=== PATIENT | female | born 1960 | race Caucasian/White ===

== ENCOUNTER → 2016-09-09 | Outpatient (CLI) | payer OTHER ==
[~2016-09-09] MED LIST: ALPR-411 PO; CHOL2000 PO; CYCL5TAB PO; DEXL60CA4 PO; HYDR-4330 PO; LANS15TA2 PO; LEVO75TA36 PO; LEVO75TA5 PO; MELO7.5T5 PO; MTRG45 TD; OPTIRAY 320 IV PRN; TRAM-10 PO; VNTHFA/IN INH; ZOLP5TAB PO; ZOLP5TAB6 PO
--- NOTE | 2016-09-09 13:21 | DIAGNOSTIC IMAGING REPORT ---
CT SOFT TISSUE NECK WITH CT DOSE: 269.39 mGy.cm CLINICAL HISTORY: Right neck pain and mass. Right ear pain. TECHNIQUE: Helical images were acquired during intravenous administration of 93 cc of Optiray 320. COMPARISON STUDY: Neck ultrasonography dated 08/10/2016 FINDINGS: There is mild apical emphysema. There are postsurgical changes of a right lobe thyroidectomy. There is a 7 mm left lobe thyroid nodule. There is a 60% stenosis involving the proximal left subclavian artery. No salivary gland masses are visualized. There are no pathologically enlarged cervical lymph nodes. No necrotic nodes are evident. There are no fluid collections suspicious for abscess. There is no evidence of airway compromise. No mucosal space masses are visualized. There is a radiopaque marker at the level of the right parotid gland. No pathologic masses in this area are visualized on CT scanning. IMPRESSION: 1. Surgically absent right lobe of the thyroid. 7 mm left lobe thyroid nodule 2. 60% stenosis involving the proximal left subclavian artery 3. No evidence of pathologic adenopathy 4. No pathologic masses are visualized in the area of reported palpable abnormality . Clinical follow-up is recommended Electronically signed by: Balta Montoya M.D. 09/09/2016 1:19 PM Dictated Date/Time: 09/09/2016 1:09 PM
== END | disposition home or self-care (01) ==
LOC: C.CTS 12:24
PROVIDERS: ATTEND Internal Medicine
DX: D47.3 Essential (hemorrhagic) thrombocythemia (principal); H92.01 Otalgia, right ear; M54.2 Cervicalgia; R22.1 Localized swelling, mass and lump, neck; R13.10 Dysphagia, unspecified; E04.1 Nontoxic single thyroid nodule; I70.8 Atherosclerosis of other arteries

== ENCOUNTER → 2016-09-28 | Outpatient (CLI) | payer OTHER ==
[~2016-09-28] MED LIST changes: -OPTIRAY 320 IV PRN
--- NOTE | 2016-09-28 12:23 | DIAGNOSTIC IMAGING REPORT ---
ULTRASOUND OF THE CAROTID ARTERIES CLINICAL HISTORY: Subclavian artery stenosis. COMPARISON STUDY: CT scan of the neck dated 09/09/2016. TECHNIQUE: Real-time, grayscale, and color Doppler sonography of the carotid arteries is performed. Images are reviewed in the transverse and longitudinal planes. FINDINGS: Blood pressure in the right arm measures 120/66 and blood pressure in the left arm measures 122/70. The carotid arteries are patent bilaterally and demonstrate antegrade flow. There is no significant atherosclerotic plaque identified. Normal doppler arterial waveforms are seen throughout. Velocity measurements are listed below. Common carotid peak systolic velocity (cm/sec): RIGHT: 71 LEFT: 92 ICA proximal peak systolic velocity (cm/sec): RIGHT: 66 LEFT: 28 ICA mid peak systolic velocity (cm/sec): RIGHT: 63 LEFT: 46 ICA distal peak systolic velocity (cm/sec): RIGHT: 84 LEFT: 67 ICA/CC peak systolic ratio: RIGHT: 1.2 LEFT: 0.7 Antegrade flow was shown in the vertebral arteries. The external carotid arteries are patent. A 1.0 cm nodule is noted in the left lobe of the thyroid gland. IMPRESSION: 1. There is no sonographic evidence of hemodynamically significant stenosis in the right or left carotid arterial system. 2. Antegrade flow is shown in the vertebral arteries. Electronically signed by: Phil Santana M.D. 09/28/2016 12:22 PM Dictated Date/Time: 09/28/2016 12:20 PM
--- NOTE | 2016-09-28 13:18 | DIAGNOSTIC IMAGING REPORT ---
BILATERAL UPPER EXTREMITY ARTERIAL DOPPLER STUDY CLINICAL HISTORY: SUBCLAVIAN ARTERY Stenosis, b/l ARMS COMPARISON STUDY: CT neck 09/09/2016. FINDINGS: Slightly elevated peak systolic velocity within the proximal left subclavian artery of 150 cm/s. This is consistent with an area of approximately 50-60% stenosis as seen on the recent CT neck. The left subclavian artery demonstrates biphasic waveforms. Otherwise, the remaining bilateral upper extremity arterial systems demonstrate normal velocities and triphasic waveforms. No evidence for arterial occlusion. IMPRESSION: Redemonstration of the approximately 50-60% focal stenosis at the proximal left subclavian artery. Otherwise, no hemodynamically significant stenosis seen within the remaining bilateral upper extremity arterial systems. Electronically signed by: Padilla Chan M.D. 09/28/2016 1:17 PM Dictated Date/Time: 09/28/2016 1:11 PM
== END | disposition home or self-care (01) ==
LOC: C.ULTR 10:55
PROVIDERS: ATTEND Surgery Vascular Surgery
DX: I70.8 Atherosclerosis of other arteries (principal)

== ENCOUNTER → 2016-10-20 | Outpatient (CLI) | payer OTHER | END | disposition home or self-care (01) | LOC: C.MAMM 09:21 | PROVIDERS: ATTEND Internal Medicine | DX: M81.0 Age-related osteoporosis without current pathological fracture (principal); M85.88 Other specified disorders of bone density and structure, other site ==

== ENCOUNTER → 2016-10-24 | Outpatient (CLI) | payer OTHER ==
--- NOTE | 2016-10-24 13:21 | DIAGNOSTIC IMAGING REPORT ---
LUMBAR SPINE MRI HISTORY: Pain. Neuropathy. LUMBAR RADICULOPATHY TECHNIQUE: Multiplanar multisequence MRI of the lumbar spine was performed without the use of contrast. COMPARISON: None. FINDINGS: For the purpose of the report the L5-S1 disc space will be located on axial image 27 of 30. Normal signal characteristics the vertebral bodies as well as intervertebral disc. L1-L2: No significant central canal or neural foraminal narrowing. L2-L3: No significant central canal or neural foraminal narrowing. L3-L4: No significant central canal or neural foraminal narrowing. L4-L5: No significant central canal or neural foraminal narrowing. L5-S1: No significant central canal or neural foraminal narrowing. IMPRESSION: Negative study Electronically signed by: Jose Miguel Doss M.D. 10/24/2016 1:19 PM Dictated Date/Time: 10/24/2016 1:17 PM
== END | disposition home or self-care (01) ==
LOC: C.MRIBC 12:27
PROVIDERS: ATTEND Orthopaedic Surgery Orthopaedic Surgery of the Spine
DX: M54.16 Radiculopathy, lumbar region (principal)

== ENCOUNTER → 2016-11-02 | Outpatient (CLI) | payer OTHER ==
[2016-11-02 10:50] LABS: BASO % 0.5 %; BASO ABS # 0.04 K/uL (0-0.2); COMPLETE YES; EOS % 0.6 %; HEMATOCRIT 41.6 % (37-47); IG% 0.2 %; LYMPH % 34.4 %; LYMPH ABS # 2.98 K/uL (1.2-3.4); MEAN CELL VOLUME 87.8 fL (80-100); MEAN CORPUSCULAR HEMOGLOBIN 29.7 pg (25-34); MEAN CORPUSCULAR HGB CONC 33.9 g/dl (32-36); MEAN PLATELET VOLUME 10.2 fL (7.4-10.4); MONO % 6.9 %; NEUT % 57.4 %; PLATELET COUNT 558 K/uL (130-400); RED BLOOD COUNT 4.74 M/uL (4.2-5.4); WHITE BLOOD COUNT 8.66 K/uL (4.8-10.8)
[2016-11-02 11:24] LABS: ALT/SGPT 27 U/L (12-78); AST/SGOT 23 U/L (15-37); BLOOD UREA NITROGEN 10 mg/dl (7-18); BUN/CREATININE RATIO 18.1 (10-20); CALCIUM 8.9 mg/dl (8.5-10.1); CARBON DIOXIDE 28 mmol/L (21-32); CHLORIDE 107 mmol/L (98-107); CHOLESTEROL 213 mg/dl (0-200); CREATININE 0.57 mg/dl (0.60-1.20); GLUCOSE 77 mg/dl (70-99); MAGNESIUM 2.1 mg/dl (1.8-2.4); POTASSIUM 4.1 mmol/L (3.5-5.1); SODIUM 143 mmol/L (136-145); TRIGLYCERIDES 97 mg/dl (0-150); VERY LOW DENSITY LIPOPROT CALC 19 mg/dl
[2016-11-02 11:32] LABS: ALKALINE PHOSPHATASE 64 U/L (45-117); CHOLESTEROL/HDL RATIO 2.4; HDL CHOLESTEROL 89 mg/dl; LDL CHOLESTEROL CALCULATED 105 mg/dl
== END | disposition home or self-care (01) ==
LOC: C.LAB1850 09:50
PROVIDERS: ATTEND Internal Medicine
DX: E03.9 Hypothyroidism, unspecified (principal); E55.9 Vitamin D deficiency, unspecified; D47.3 Essential (hemorrhagic) thrombocythemia; R00.2 Palpitations

== ENCOUNTER 2016-12-22 07:22 | Emergency (ER) | payer OTHER ==
[~2016-12-22] VITALS: Ht 160 cm; Wt 59.6 kg
[~2016-12-22 07:22] MED LIST changes: -ALPR-411 PO; -CHOL2000 PO; -CYCL5TAB PO; -DEXL60CA4 PO; -HYDR-4330 PO; -LEVO75TA5 PO; -MELO7.5T5 PO; -MTRG45 TD; -TRAM-10 PO; -VNTHFA/IN INH; -ZOLP5TAB PO
[2016-12-22 07:25] VITALS: TEMP 36.8; Ht 160 cm; Wt 59.6 kg
[2016-12-22] MEDS ORDERED: HYDROCODONE/ACETAMOPHEN 5/325MG TAB PO STA (07:52)
[2016-12-22] MEDS ORDERED: CYCLOBENZAPRINE HCL 5 MG TAB PO STA (07:52)
[2016-12-22] MEDS ORDERED: CYCLOBENZAPRINE HCL 10 MG TAB ONE (08:03)
[2016-12-22] MEDS ORDERED: CYCL5TAB PO (08:06)
[2016-12-22] MEDS ORDERED: TRAM-10 PO (08:06)
[2016-12-22] MEDS ORDERED: MTRG45 TD (08:12)
[2016-12-22] MEDS ORDERED: DEXL60CA4 PO (08:12)
[2016-12-22] MEDS ORDERED: MELO7.5T5 PO (08:12)
[2016-12-22] MEDS ORDERED: ALPR-411 PO (08:12)
[2016-12-22] MEDS ORDERED: VNTHFA/IN INH (08:12)
[2016-12-22] MEDS ORDERED: ZOLP5TAB PO (08:12)
[2016-12-22] MEDS ORDERED: CHOL2000 PO (08:12)
[2016-12-22] MEDS ORDERED: LEVO75TA5 PO (08:12)
[2016-12-22] MEDS ORDERED: HYDR-4330 PO (08:13)
[2016-12-22 08:25] VITALS: BP 137/87; PULSE 81; O2SAT 99
--- NOTE | 2016-12-22 08:27 | EMERGENCY ROOM VISIT NOTE ---
History Report prepared by Jennifer: Abigail Perez Under the Supervision of: Dr. Sharon Chandra M.D. First contact with patient: 07:31 Chief Complaint: BACK PAIN Stated Complaint: BACK PAIN History of Present Illness The patient is a 56 year old female who presents to the Emergency Room with complaints of worsening back pain starting 3 days ago. She fell down 8 months ago and has been going to physical therapy and chiropractor for back pain since. Three days ago, she had an FCE test which involved lifting, pushing, and pulling activities for 3.5 hours. She has had increased pain starting the next day. She also reports right knee pain, left ankle pain, neck pain, and right arm pain. She has pain in her back with deep breathing. She denies any incontinence or trouble urinating. She has been taking up to 3 tramadol at a time for her pain. MRI from September 2016 was reviewed in which no abnormalities were visualized. Source of History: patient Onset: 3 days ago Position: back Quality: other (pain) Timing: worsening Modifying Factors (Worsening): breathing (deeply) Associated Symptoms: + neck pain, No urinary symptoms Note: Pt reports right knee pain, left ankle pain, right arm pain. Pt denies incontinence, trouble urinating. Review of Systems See HPI for pertinent positives & negatives. A total of 10 systems reviewed and were otherwise negative. Past Medical & Surgical Medical Problems: (1) Depression (2) GERD (gastroesophageal reflux disease) (3) Hyperlipidemia Nec/Nos (4) Hypotension (5) Hypothyroidism Nos Surgical Problems: (1) History of thyroid surgery Family History Diabetes mellitus Social History Smoking Status: Never Smoker Alcohol Use: none Marital Status: Housing Status: lives with family Occupation Status: employed Current/Historical Medications Scheduled Cholecalciferol (Vitamin D3), 2,000 UNITS PO DAILY Dexlansoprazole (Dexilant), 60 MG PO DAILY Levothyroxine Sodium (Levothyroxine Sodium), 75 MCG PO DAILY Meloxicam (Mobic), 7.5 MG PO DAILY Metronidazole HCl (Metronidazole), 1 APPLN TD BID Scheduled PRN Albuterol Hfa (Ventolin Hfa), 1-2 PUFFS INH Q4H PRN for SOB/Wheezing Alprazolam (Xanax), 0.25-0.5 MG PO BID PRN for Anxiety Cyclobenzaprine Hcl (Flexeril), 5 MG PO TID PRN for Muscle Spasms Hydrocodone-Acetaminophen (Lortab 5-325 mg), 1 TAB PO Q4 PRN for Pain Tramadol (Ultram), 1 TABS PO Q6 PRN for Pain Zolpidem Tartrate (Ambien), 5 MG PO HS PRN for Insomnia Allergies Coded Allergies: No Known Allergies (Unverified , 12/22/16) Physical Exam Vital Signs Date Time Temp Pulse Resp B/P Pulse Ox O2 Delivery O2 Flow Rate FiO2 12/22/16 08:25 81 18 137/87 99 12/22/16 07:25 36.8 85 17 131/92 98 Room Air Physical Exam Vital signs reviewed. General: Appears to be anxious and fidgety, in no significant distress. HEENT: No scleral icterus, PERRLA, neck supple. Atraumatic. Cardiovascular: Regular rate and rhythm, no extra sounds. Pulmonary: Clear to auscultation bilaterally, normal work of breathing. Abdomen: Soft, nontender, nondistended, positive bowel sounds. Musculoskeletal: Atraumatic, no peripheral edema. Tenderness to palpation over trapezius muscle bilaterally, paraspinous muscle of lumbar spine. Full strength in bilateral lower extremities. Ambulates. Neurologic: Patient awake alert and oriented x 3, full strength in all 4 extremities. Cranial nerves 2 through 12 grossly intact. Skin: Warm, dry, no rash Medical Decision & Procedures Medications Administered Medications (Trade) Dose Ordered Sig/Cezar Route Start Time Stop Time Status Last Admin Dose Admin Acetaminophen/ Hydrocodone Bitart ([place] 5/325 Tab) 1 tab NOW STAT PO 12/22/16 07:52 12/22/16 07:58 DC 12/22/16 08:05 1 TAB Cyclobenzaprine HCl (Flexeril Tab) 10 mg STK-MED ONCE .ROUTE 12/22/16 08:03 12/22/16 08:04 DC 12/22/16 08:06 5 MG ED Course 0737: Past medical records reviewed. The patient was evaluated in room B3B. A complete history and physical examination was performed. 0752: Acetaminophen/Hydrocodone Bitart 1 tab PO, Flexeril Tab 5 mg PO. 0809: Upon reevaluation, the patient appeared to have improvement of her symptoms. I discussed findings with her. She verbalized agreement of the treatment plan. She was discharged home. Medical Decision Differential diagnosis: Etiologies such as musculoskeletal, disc herniation, fracture, aortic disease, metastatic disease, cord compression, discitis, infection, renal colic, gastrointestinal, acute exacerbation of chronic back pain, sciatica, cauda equina, as well as others were entertained. This patient was evaluated and appeared to be in no significant distress. Patient's physical examination reveals tenderness diffusely. She has multiple complaints of pain. She is ambulatory without difficulty and has denied loss of bowel or bladder function. The patient has run out of her pain medication, according to the PDMP the patient has not had any medications filled in at least 4 months. The patient was given a hydrocodone tablet with 5 mg of Flexeril. MRI results were reviewed from 2 months ago. The patient has no acute abnormality on MRI of the lumbar spine. Patient was given a one-week prescription for Ultram 50 mg every 6 hours as needed and Flexeril milligrams 3 times a day as needed. She'll follow-up with orthopedic spine this week and her primary care physician. She will return to the ER for worsening of symptoms or any medical concerns. [place] Drug Monitoring Program Search Results: patient reviewed within database, no issues identified Drug Monitoring Findings: Last prescription was tramadol in June 2016. Impression Primary Impression: Low back strain Additional Impression: Upper back strain Scribe Attestation The scribe's documentation has been prepared under my direction and personally reviewed by me in its entirety. I confirm that the note above accurately reflects all work, treatment, procedures, and medical decision making performed by me. Departure Information Dispostion Home / Self-Care Prescriptions Cyclobenzaprine Hcl (FLEXERIL) 5 Mg Tab 5 MG PO TID Y for Muscle Spasms, #21 TAB Prov: Sharon Chandra M.D. 12/22/16 Tramadol (Ultram) 50 Mg Tab 1 TABS PO Q6 Y for Pain, #21 TAB Prov: Sharon Chandra M.D. 12/22/16 Referrals RV. Can MD (PCP) Forms HOME CARE DOCUMENTATION FORM, IMPORTANT VISIT INFORMATION Patient Instructions My [facility] Additional Instructions Diagnosis: Upper and lower back strain Tramadol 50 mg every 6 hours as needed for pain. Ibuprofen 600 mg every 6 hours as needed for pain with food. Flexeril 5 mg 3 times daily as needed for muscular spasm. Follow-up with your physician and orthopedic spine, Dr. Granados. Please call their office today to arrange an appointment within the next 1-2 weeks. Return to the emergency department for worsening of symptoms or any medical concerns. Problem Qualifiers
== END 2016-12-22 08:26 | disposition home or self-care (01) ==
LOC: C.EDB 07:23
DX: S39.012A Strain of muscle, fascia and tendon of lower back, initial encounter (principal); W19.XXXA Unspecified fall, initial encounter; F32.9 Major depressive disorder, single episode, unspecified; K21.9 Gastro-esophageal reflux disease without esophagitis; E78.5 Hyperlipidemia, unspecified; I95.9 Hypotension, unspecified; E03.9 Hypothyroidism, unspecified; Z83.3 Family history of diabetes mellitus; Z79.899 Other long term (current) drug therapy

== ENCOUNTER → 2016-12-27 | Outpatient (CLI) | payer OTHER ==
[~2016-12-27] MED LIST changes: +ALPR-411 PO; +CHOL2000 PO; +CYCL5TAB PO; +DEXL60CA4 PO; +HYDR-4330 PO; -LANS15TA2 PO; -LEVO75TA36 PO; +LEVO75TA5 PO; +MELO7.5T5 PO; +MTRG45 TD; +TRAM-10 PO; +VNTHFA/IN INH; +ZOLP5TAB PO; -ZOLP5TAB6 PO
[2016-12-27 18:58] LABS: C-REACTIVE PROTEIN < 0.29 mg/dl (0-0.29); RHEUMATOID FACTOR 15.9 U/mL (0-15)
[2017-01-02 13:10] LABS: ANTI-CENTROMERE AB <1.0 NEG AI (<1.0 NEG); ANTI-SS-A <1.0 NEG AI (<1.0 NEG); ANTI-SS-B <1.0 NEG AI (<1.0 NEG); DNA ds CRITHIDIA NEGATIVE (NEGATIVE); HLA-B27** TC 528X NEGATIVE (NEGATIVE); MICROSOMAL AB <1 IU/ML (<9); Sm Antibody <1.0 NEG AI (<1.0 NEG)
== END | disposition home or self-care (01) ==
LOC: C.LAB 17:42
PROVIDERS: ATTEND Internal Medicine
DX: M54.5 Low back pain (principal)

== ENCOUNTER → 2017-01-30 | Outpatient (CLI) | payer OTHER ==
[~2017-01-30] MED LIST changes: -CYCL5TAB PO
[2017-01-30 17:11] LABS: TOTAL IRON BINDING CAPACITY 420 mcg/dl (250-450)
[2017-02-03 00:51] LABS: PARVOVIRUS IgG INDEX 2.7 (<0.9); PARVOVIRUS IgM INDEX 0.1 (<0.9)
== END | disposition home or self-care (01) ==
LOC: C.LAB1850 15:41
PROVIDERS: ATTEND Internal Medicine Rheumatology
DX: M06.4 Inflammatory polyarthropathy (principal)

== ENCOUNTER → 2017-01-30 | Outpatient (CLI) | payer OTHER ==
--- NOTE | 2017-01-30 15:46 | DIAGNOSTIC IMAGING REPORT ---
RIGHT KNEE 3 VIEWS CLINICAL HISTORY: Right knee pain. COMPARISON: None. DISCUSSION: No acute fractures are visualized. There are no erosive or destructive changes. There is minimal medial joint compartment narrowing. IMPRESSION: Minimal medial joint compartment narrowing. No evidence of fracture. No erosive or destructive changes. Electronically signed by: Balta Montoya M.D. 01/30/2017 3:45 PM Dictated Date/Time: 01/30/2017 3:44 PM
--- NOTE | 2017-01-30 15:47 | DIAGNOSTIC IMAGING REPORT ---
LEFT ANKLE MIN 3 VIEWS ROUTINE CLINICAL HISTORY: POLYARTHRITIS COMPARISON: None FINDINGS: Alignment of left ankle is anatomic. No fracture or suspicious lesion is present. Talar dome is intact. Joint spaces are preserved. No erosions are identified. There are no soft tissue calcifications. IMPRESSION: Unremarkable left ankle radiographs. Electronically signed by: Cam Newman M.D. 01/30/2017 3:45 PM Dictated Date/Time: 01/30/2017 3:45 PM
--- NOTE | 2017-01-30 15:48 | DIAGNOSTIC IMAGING REPORT ---
LEFT HAND MIN 3 VIEWS ROUTINE CLINICAL HISTORY: POLYARTHRITIS LEFT HAND PAIN COMPARISON: None. DISCUSSION: There is mild particular osteopenia. No acute fractures are visualized. There are small periarticular calcifications at the level of the second and third, and fifth interphalangeal joints. There are no bony erosions. There is no significant joint space narrowing. IMPRESSION: 1. No acute fractures 2. Nonspecific periarticular calcifications 3. No evidence of bony erosive disease 4. No evidence of significant joint space narrowing 5. Periarticular osteopenia Electronically signed by: Balta Montoya M.D. 01/30/2017 3:47 PM Dictated Date/Time: 01/30/2017 3:45 PM
--- NOTE | 2017-01-30 15:48 | DIAGNOSTIC IMAGING REPORT ---
RIGHT HAND MIN 3 VIEWS ROUTINE CLINICAL HISTORY: POLYARTHRITIS. COMPARISON: None FINDINGS: Alignment of the right hand is anatomic. There is no fracture or suspicious lesion. There is mild narrowing of the radiocarpal joint space. There is mild osteophytosis of several articulations within the right hand. No erosions are identified. IMPRESSION: 1. Minimal osteoporosis within several articulations of the right hand and wrist. 2. No radiographic evidence of an erosive/inflammatory arthropathy. Electronically signed by: Cam Newamn M.D. 01/30/2017 3:47 PM Dictated Date/Time: 01/30/2017 3:46 PM
== END | disposition home or self-care (01) ==
LOC: C.RAD1850 15:14
PROVIDERS: ATTEND Internal Medicine Rheumatology
DX: M06.4 Inflammatory polyarthropathy (principal)

== ENCOUNTER → 2017-04-06 | Outpatient (CLI) | payer OTHER ==
[2017-04-06 13:37] LABS: BASO % 0.3 %; BASO ABS # 0.03 K/uL (0-0.2); COMPLETE YES; EOS % 1.1 %; HEMATOCRIT 40.2 % (37-47); IG% 0.3 %; LYMPH % 32.1 %; LYMPH ABS # 2.84 K/uL (1.2-3.4); MEAN CELL VOLUME 85.9 fL (80-100); MEAN CORPUSCULAR HEMOGLOBIN 28.2 pg (25-34); MEAN CORPUSCULAR HGB CONC 32.8 g/dl (32-36); MEAN PLATELET VOLUME 10.4 fL (7.4-10.4); MONO % 6.6 %; NEUT % 59.6 %; PLATELET COUNT 509 K/uL (130-400); RED BLOOD COUNT 4.68 M/uL (4.2-5.4); WHITE BLOOD COUNT 8.85 K/uL (4.8-10.8)
[2017-04-06 13:46] LABS: CREATININE 0.57 mg/dl (0.60-1.20)
[2017-04-06 13:52] LABS: ALKALINE PHOSPHATASE 69 U/L (45-117); ALT/SGPT 26 U/L (12-78); AST/SGOT 14 U/L (15-37)
== END | disposition home or self-care (01) ==
LOC: C.LAB1850 11:48
PROVIDERS: ATTEND Internal Medicine Rheumatology
DX: M06.4 Inflammatory polyarthropathy (principal); Z79.1 Long term (current) use of non-steroidal anti-inflammatories (NSAID); Z79.899 Other long term (current) drug therapy

== ENCOUNTER → 2017-09-11 | Outpatient (CLI) | payer OTHER ==
[~2017-09-11] MED LIST changes: -TRAM-10 PO
[2017-09-11 17:36] LABS: BASO % 0.4 %; BASO ABS # 0.04 K/uL (0-0.2); EOS % 1.4 %; EOS ABS # 0.15 K/uL (0-0.5); HEMATOCRIT 39.6 % (37-47); IG# 0.03 K/uL (0.00-0.02); LYMPH % 38.6 %; LYMPH ABS # 4.09 K/uL (1.2-3.4); MEAN CELL VOLUME 85.3 fL (80-100); MEAN CORPUSCULAR HGB CONC 32.8 g/dl (32-36); MEAN PLATELET VOLUME 10.5 fL (7.4-10.4); MONO % 6.4 %; MONO ABS # 0.68 K/uL (0.11-0.59); NEUT % 52.9 %; NEUT ABS # 5.61 K/uL (1.4-6.5); PLATELET COUNT 603 K/uL (130-400); RED CELL DISTRIBUTION WIDTH CV 14.6 % (11.5-14.5); RED CELL DISTRIBUTION WIDTH SD 45.6 fL (36.4-46.3)
[2017-09-11 18:09] LABS: ALBUMIN 3.8 gm/dl (3.4-5.0); ALT/SGPT 26 U/L (12-78); AST/SGOT 18 U/L (15-37); BLOOD UREA NITROGEN 9 mg/dl (7-18); CALCIUM 8.6 mg/dl (8.5-10.1); CARBON DIOXIDE 27 mmol/L (21-32); CREATININE 0.53 mg/dl (0.60-1.20); GLUCOSE 79 mg/dl (70-99); POTASSIUM 3.6 mmol/L (3.5-5.1); SODIUM 139 mmol/L (136-145)
[2017-09-11 18:20] LABS: ALKALINE PHOSPHATASE 69 U/L (45-117); TOTAL PROTEIN 7.4 gm/dl (6.4-8.2)
== END | disposition home or self-care (01) ==
LOC: C.LAB1850 16:44
PROVIDERS: ATTEND Internal Medicine
DX: D47.3 Essential (hemorrhagic) thrombocythemia (principal); E55.9 Vitamin D deficiency, unspecified; E03.9 Hypothyroidism, unspecified; M25.561 Pain in right knee; M25.562 Pain in left knee

== ENCOUNTER → 2017-11-16 | Day surgery (SDC) | payer OTHER ==
[~2017-11-16] VITALS: Ht 160 cm; Wt 59.0 kg
[~2017-11-16] MED LIST changes: +IRON SUCROSE INJ 300 MG in SODIUM CHLORIDE 0.9% 250ML IV SCH; +SUCR1TAB29 PO
[2017-11-16 11:31] VITALS: BP 112/70; PULSE 85; TEMP 36.7; O2SAT 99; Ht 160 cm; Wt 59.0 kg
[2017-11-16 12:11] VITALS: BP 105/68; PULSE 85; TEMP 36.6; O2SAT 99
[2017-11-16 13:40] VITALS: BP 100/62; PULSE 72; TEMP 36.5
== END | disposition home or self-care (01) ==
LOC: C.MTU 11:11
PROVIDERS: ATTEND Internal Medicine
DX: D50.9 Iron deficiency anemia, unspecified (principal); D47.3 Essential (hemorrhagic) thrombocythemia

== ENCOUNTER → 2017-12-25 | Outpatient (CLI) | payer OTHER ==
[~2017-12-25] MED LIST changes: -HYDR-4330 PO; -IRON SUCROSE INJ 300 MG in SODIUM CHLORIDE 0.9% 250ML IV SCH
== END | disposition home or self-care (01) ==
LOC: C.LAB 18:40
PROVIDERS: ATTEND Physician Assistant
DX: R39.9 Unspecified symptoms and signs involving the genitourinary system (principal)

== ENCOUNTER → 2017-12-26 | Outpatient (CLI) | payer OTHER | END | disposition home or self-care (01) | LOC: C.LABSPEC 13:46 | PROVIDERS: ATTEND Physician Assistant | DX: R30.0 Dysuria (principal) ==

== ENCOUNTER 2025-08-18 11:54 | Observation (INO) ==
--- NOTE | 2025-08-18 12:23 | Emergency Department Note ---
Impression & Plan Acute back pain with sciatica ED Provider Note NAME: ALFONZO YOUNG AGE: 64 SEX: F : 1960 ARRIVES VIA: Walk-In INFORMANT: Patient, ED PROVIDER(S): Curly Underwood MD CHIEF COMPLAINT: Back and leg pain MEDICAL DECISION MAKING: Patient presents with above likely sciatica based on symptoms with radiation of pain down the right leg and associated numbness. IV was established and blood work was obtained. She was treated with medications. Lumbar x-rays performed. The patient's blood work shows a normal white count hemoglobin and platelet count kidney function is unremarkable. The patient's lumbar x-rays do not show any acute concerning findings. Patient does have improvement with regard to her back pain but was still having pain. The patient was ordered fentanyl 50 mcg methocarbamol 1500 as well as IV fluids. Patient did feel improved upon subsequent reassessment. The patient was attempted to go home was placed in a wheelchair but was noted will get up and ambulate very well. Patient does not have any exam consistent with cauda equina but this is likely radiculopathy. Given the patient's amatory function and persistent pain I did speak with the on-call medicine service Dr. De Leon and the patient was admitted. Patient on IV morphine 4 mg. Discussion w/ other healthcare providers: Dr. De Leon inpatient medicine service Prior /Outside records reviewed: None Differential diagnosis: Musculoskeletal, disc herniation, fracture, sprain, strain, cord compression, discitis, sciatica, cauda equina, infection, renal colic, as well as other pathologies were considered. Diagnostics, as interpreted by me: ECG: None Cardiac monitoring: An order was placed for continuous cardiac monitoring. The monitor shows a rate of 89 with sinus rhythm. Patient was placed on pulse oximetry Medical decision rules: None Imaging studies: I informally interpreted the patient's lumbar spine x-ray does not show evidence of obvious fracture with formal report to follow. HPI: Patient presents due to concerns for back pain and leg pain. The pain started about 2 Mondays ago. It has gotten progressively worse. The patient has been taking [id number] medications. Patient reports this morning she had worsening pain down the right leg and associated numbness. No bowel or bladder incontinence or retention. No falls or trauma. Patient denies any urinary symptoms. Reportedly as an outpatient did have a urine completed which was unremarkable. Patient denies any falls. PAST MEDICAL HISTORY: See Below PAST SURGICAL HISTORY: See Below SOCIAL HISTORY: See Below HOME MEDICATIONS: See Below ALLERGIES: See Below VITALS: See Below PHYSICAL EXAMINATION: GENERAL: NAD, non-toxic. EYE EXAM: Normal conjunctiva. PERRL, no anisocoria and EOM's grossly intact w/o pain. OROPHARYNX: Moist mucus membranes, grossly normal dentition. NECK: Trachea midline, no stridor. Supple, no nuchal rigidity, no adenopathy, non-tender. No signs of meningismus. FROM of the neck with good chin to chest and neck extension. LUNGS: Clear to auscultation. Normal chest wall mechanics. HEART: NSR, no MRG. ABDOMEN: Abdomen soft, non-tender, no masses, no rebound or guarding. BACK: No CVA TTP. SKIN: No rashes and no bruising. UPPER EXTREMITIES: Upper extremities are grossly normal. LOWER EXTREMITIES: Grossly normal, no edema. NEURO EXAM: Awake and alert, follows commands, no obvious facial asymmetry, normal speech, moves all 4 extremities. Past Med/Surg History Problem List GERD (gastroesophageal reflux disease) Thrombocytopenia Acute back pain with sciatica (Acute) Iron deficiency Multiple thyroid nodules Splenomegaly (Acute) Frequent UTI (Chronic) Cystocele with rectocele Right low back pain Ovarian cyst 2017, simple, left 2.1cm Prediabetes Difficulty swallowing Osteopenia GERD (gastroesophageal reflux disease) Generalized OA Smell, impaired Decreased sensation of smell since infection July 2019 Vitamin D deficiency disease (Acute) Decreased hearing of right ear (Acute) Abnormal EMG (Acute) Asthma Bronchiectasis Allergic rhinitis with postnasal drip COPD (chronic obstructive pulmonary disease) Low back pain Subclavian artery stenosis Rosacea Essential thrombocytopenia f/u Dr. Shant Hemphill @ [facility] Hypothyroidism (Acute) Medical History Neck tightness Depression Hyperlipidemia H/O thyroid nodule Blepharitis of upper eyelid Neck pain Acquired autoimmune hypothyroidism Abnormal thyroid ultrasound COVID-19 UTI (urinary tract infection) Asymptomatic postmenopausal state Intestinal metaplasia of gastric mucosa EGD- 2019- chronic gastritis only RUQ pain History of COVID-19 06/17, pcr [place], not hospitalized, dry cough, fatigue, fever>resolved. Chronic obstructive pulmonary disease Asthma Chronic cough Acute lateral meniscus tear of right knee History of recurrent infection frequent nasal infections ever since nasal septoplasty-occasional sore on the end of her nose Osteoporosis Osteoarthritis Anxiety no meds Migraine hx, last one 2-3 months ago Cough Dry cough intermittent ongoing since upper respiratory infection July 2019 Metaplasia of esophagus dtr states "they did another scope and we were told it was now resolved." Late onset dysthymia BRENDON (iron deficiency anemia) Esophagitis hx Constipation Lump of right breast "resolved itself" Depression Surgical History History of bilateral cataract extraction History of nasal septoplasty History of esophagogastroduodenoscopy (EGD) History of repair of rotator cuff right History of biopsy 01/12/16 - gastric and esophagus History of thyroid surgery 2006> benign nodule H/O colonoscopy 06/19/12 Family History Grandfather (Paternal) Bone cancer Sister Diabetes Osteoporosis Other No family history of adverse response to anesthesia Denies family history of Ovarian cancer Prostate cancer Myocardial infarction Breast cancer Colorectal cancer Stroke Social History Smoking Status: Never smoker Second Hand Exposure: No; Do You Dip or Chew Tobacco: No; Hx Alcohol Use: No Hx Substance Use: No Preferred Language: Chinese Communication Ability: Impaired Visual Impairment: No Limitations Hearing Ability: Normal Senior Net Software Developer Required: Yes Beliefs That Will Affect Care: None marital status: Current Living Situation: Spouse current occupational status: unemployed Feels Safe at Home: Yes Childhood Exposure to Second-Hand Smoke: No Dental Care, Regularly: Yes Physical Activity Frequency: 3-4 Times per Week Seatbelt Use: always Sunscreen Use: Yes Assistive Devices: Glasses Allergies Allergies Allergy/AdvReac Type Severity Reaction Status Date / Time sertraline Allergy Intermediate shaking Verified 08/12/25 13:28 Home Meds Home Medications Medication Instructions Recorded Confirmed aspirin 81 mg tablet,delayed 81 mg PO QAM 12/20/21 08/12/25 release (Adult Low Dose Aspirin) diclofenac sodium 1 % topical gel 1 g topical BID PRN Pain 02/22/22 08/12/25 sumatriptan succinate 25 mg tablet 25 mg PO UD PRN migraines 02/22/22 08/12/25 iron,carbonyl 65 mg-vitamin C 125 1 tab PO DAILY 01/28/25 08/12/25 mg tablet,delayed release (Vitron-C) estradiol 0.01% (0.1 mg/gram) 1 g vaginal DAILY PRN 07/03/25 08/12/25 vaginal cream Previous Rx's Medication Instructions Recorded sodium chloride 7 % for 1 inh inhalation BID #240 mL 11/24/22 nebulization mupirocin 2 % topical ointment 1 applic topical HS PRN Skin 09/21/23 Irritation #22 grams albuterol sulfate 2.5 mg/3 mL 2.5 mg (3 mL) inhalation BID #180 03/27/24 (0.083 %) solution for nebulization mL nebulizers (FINXI Go Nebulizer) #1 ea 04/08/24 folic acid 1 mg tablet 1 mg PO QAM #90 tabs 05/12/24 Ventolin HFA 90 mcg/actuation 1 - 2 puff inhalation Q6H PRN 02/11/25 aerosol inhaler (albuterol sulfate) shortness of breath or wheezing #18 grams cholecalciferol (vitamin D3) 50 2,000 unit PO QAM #90 tabs 02/14/25 mcg (2,000 unit) tablet dexlansoprazole 60 mg 60 mg PO QAM #90 caps 02/14/25 capsule,biphase delayed release zolpidem 5 mg tablet 2.5 - 5 mg (0.5 - 1 x 5 mg) PO HS 03/18/25 PRN insomnia #30 tabs tramadol 50 mg tablet 50 mg PO Q8H PRN pain #30 tabs 05/02/25 budesonide-formoterol HFA 80 2 puff inhalation BID #3 Inhalers 05/23/25 mcg-4.5 mcg/actuation aerosol inhaler (Symbicort) levothyroxine 88 mcg tablet 88 mcg PO .COMPLEX #80 tabs 07/21/25 hydroxyurea 500 mg capsule 500 mg PO DAILY #90 caps 08/05/25 nitrofurantoin 100 mg PO Q12H 5 days #10 caps 08/14/25 monohydrate/macrocrystals 100 mg capsule (Macrobid) lidocaine 5 % topical patch 1 patch topical DAILY PRN pain #15 08/18/25 ea methocarbamol 500 mg tablet 1,500 mg (3 x 500 mg) PO TID 2 08/18/25 days #18 tabs methylprednisolone 4 mg tablets in See Rx Instructions .Route 08/18/25 a dose pack .COMPLEX #21 ea oxycodone 5 mg tablet 5 mg PO Q8H PRN pain #9 tabs 08/18/25 Results & Data (ED) Vital Signs Vital Signs - 24 hr 08/18/25 11:57 08/18/25 12:55 08/18/25 13:15 Temperature 36.4 C L Temperature Source Temporal Artery Scan Pulse Rate 98 H 78 Pulse Rate [Finger] 81 Respiratory Rate 20 20 18 Respiratory Effort / Characteristics Non-Labored Spontaneous Non-Labored Spontaneous Respiratory Depth Normal Normal Respiratory Pattern Regular Regular Blood Pressure 138/79 Blood Pressure [Left Arm] 133/85 Blood Pressure Mean 98 Blood Pressure Mean [Left Arm] 101 Blood Pressure Position Sitting Pulse Oximetry 99 98 95 Oxygen Delivery Method Room Air Room Air Room Air Sepsis Recent Fever Within 48 Hours No Sepsis New/Unexplained Change in Mental Status No Sepsis Action Taken by Nursing No Action Required 08/18/25 14:01 08/18/25 14:02 08/18/25 14:41 Temperature Temperature Source Pulse Rate 77 Pulse Rate [Finger] 72 70 Respiratory Rate 16 16 Respiratory Effort / Characteristics Non-Labored Spontaneous Respiratory Depth Normal Respiratory Pattern Regular Blood Pressure Blood Pressure [Left Arm] 118/71 153/84 H Blood Pressure Mean Blood Pressure Mean [Left Arm] 86 107 Blood Pressure Position Pulse Oximetry 94 95 Oxygen Delivery Method Room Air Room Air Sepsis Recent Fever Within 48 Hours Sepsis New/Unexplained Change in Mental Status Sepsis Action Taken by Nursing 08/18/25 18:22 Temperature Temperature Source Pulse Rate Pulse Rate [Finger] 94 H Respiratory Rate 22 Respiratory Effort / Characteristics Respiratory Depth Respiratory Pattern Blood Pressure Blood Pressure [Left Arm] 136/77 Blood Pressure Mean Blood Pressure Mean [Left Arm] 96 Blood Pressure Position Pulse Oximetry 91 Oxygen Delivery Method Room Air Sepsis Recent Fever Within 48 Hours Sepsis New/Unexplained Change in Mental Status Sepsis Action Taken by [facility] Medications Current Medication List: was personally reviewed by me Laboratory Data Attestation: I reviewed the patient's lab results. 08/18/25 12:54 08/18/25 12:54 Lab Results 08/18/25 Range/Units 12:54 WBC 8.34 (4.8-10.8) K/ul RBC 4.44 (4.20-5.40) M/uL Hgb 14.1 (12.0-16.0) g/dL Hct 41.8 (37.0-47.0) % MCV 94.1 (80.0-100.0) fL MCH 31.8 (25.0-34.0) pg MCHC 33.7 (32.0-36.0) g/dL RDW Std Deviation 61.2 H (36.4-46.3) fL RDW Coeff of Diana 17.8 H (11.5-14.5) % Plt Count 396 (130-400) K/uL MPV 10.5 (9.4-12.4) fL Immature Gran % (Auto) 0.4 % Neut % (Auto) 62.2 % Lymph % (Auto) 29.0 % [place] % (Auto) 6.7 % Eos % (Auto) 1.1 % Baso % (Auto) 0.6 % Neut # (Auto) 5.19 (1.40-6.50) K/uL Lymph # (Auto) 2.42 (1.20-3.40) K/uL [place] # (Auto) 0.56 (0.11-0.59) K/uL Eos # (Auto) 0.09 (0.00-0.50) K/uL Baso # (Auto) 0.05 (0.00-0.20) K/uL Immature Gran # (Auto) 0.03 (0.01-0.20) K/uL Sodium 141 (136-145) mmol/L Potassium 4.0 (3.5-5.1) mmol/L Chloride 106 (98-107) mmol/L Carbon Dioxide 28 (21-32) mmol/L Anion Gap 7 (3-11) BUN 12 (6-23) mg/dl Creatinine 0.56 L (0.6-1.2) mg/dl Est Cr Clr Drug Dosing 73.8 ml/min eGFR 101.22 BUN/Creatinine Ratio 21.4 H (10-20) Glucose 83 (70-99(Fasting)) mg/dl Calcium 9.4 (8.6-10.3) mg/dl Administered Medications Discontinued Medications Acetaminophen (Acetaminophen 500 Mg Tab) 1,000 mg PO NOW STA Stop: 08/18/25 12:40 Last Admin: 08/18/25 12:57 Dose: 1,000 mg Documented By: [email or web address] Fentanyl Citrate (Fentanyl Citrate Pf 100 Mcg/2 Ml Vial) 50 mcg IV NOW STA Stop: 08/18/25 15:16 Last Admin: 08/18/25 15:27 Dose: 50 mcg Documented By: JAGDISH Sodium Chloride (Nss) 500 mls @ 999 mls/hr IV .Q31M ONE Stop: 08/18/25 15:46 Last Infusion: 08/18/25 18:24 Dose: Infused Documented By: Admin: 08/18/25 15:28 Dose: 999 mls/hr Documented By: JAGDISH Ketorolac Tromethamine (Ketorolac Tromethamine 15 Mg/Ml Vial) 10 mg IV ONE STA Stop: 08/18/25 12:40 Last Admin: 08/18/25 12:56 Dose: 10 mg Documented By: kristofer Lidocaine (Lidocaine 5% 1 Patch) 1 patch TD NOW STA Stop: 08/18/25 12:40 Last Admin: 08/18/25 12:59 Dose: 1 patch Documented By: kristofer Methocarbamol (Methocarbamol 500 Mg Tablet) 1,500 mg PO NOW STA Stop: 08/18/25 15:16 Last Admin: 08/18/25 15:34 Dose: 1,500 mg Documented By: JAGDISH Methylprednisolone (Methylprednisolone 125 Mg/2 Ml Vial) 125 mg IV NOW STA Stop: 08/18/25 12:40 Last Admin: 08/18/25 12:58 Dose: 125 mg Documented By: kristofer Morphine Sulfate (Morphine Sulfate 4 Mg/Ml 1 Ml Carp\\Vial) 2 mg IV NOW STA Stop: 08/18/25 12:40 Last Admin: 08/18/25 12:59 Dose: 2 mg Documented By: kristofer Morphine Sulfate (Morphine Sulfate 4 Mg/Ml 1 Ml Carp\\Vial) 4 mg IV NOW STA Stop: 08/18/25 17:42 Last Admin: 08/18/25 18:19 Dose: 4 mg Documented By: DIONICIO Imaging Data Radiologist's Impression: Lumbar Spine X-Ray 08/18/25 12:39 XR lumbar spine 2-3V HISTORY: 64 years-old Female R sided sciatica chronic low back pain COMPARISON: 08/12/2025 TECHNIQUE: 3 views of the lumbar spine FINDINGS: Transitional lumbosacral anatomy. Mild multilevel vertebral disc space narrowing, spondylitic spurring facet arthrosis. No acute fracture, subluxation or endplate erosion. Unremarkable soft tissues. IMPRESSION: No acute fracture or subluxation. ACT 112: Negative or not required by law. The above report was generated using voice recognition software. It may contain grammatical, syntax or spelling errors. Electronically signed by: Aubrey Howard M.D. 08/18/2025 2:02 PM Discharge Plan Visit Data Chief Complaint: Back Injury/Pain Stated Complaint: SEVERE BACK & LEG PAIN R ED Provider: Curly Underwood Discharge Problem: Acute back pain with sciatica Patient Disposition: Home - Self-Care Condition: Good Discharge Instructions Berta/Other Patient Handouts: ED [facility] Back Pain Activity Restrictions/Additional Instructions: Please return to the emergency department if you have worsening or recurrent symptoms not amenable to at-home treatment. Please call for a follow-up appointment with her primary care physician. Please take your medications as prescribed. If you have other concerns and/or complaints please feel free to also call your primary care physician's office or return the ED for further evaluation, management, and treatment. Take your medications as prescribed. You have been examined and treated today on an emergency basis only. This is not a substitute for, or an effort to provide, complete comprehensive medical care. It is impossible to recognize and treat all injuries or illnesses in a single emergency department visit. It is therefore important that you follow up closely with [facility], your PCP, and/or your specialist(s). Call as soon as possible for an appointment. Reason for visit: Back pain Treatments during visit: Blood work, x-rays, pain medication Testing revealed: Examination consistent consistent with sciatic related back pain. Reassuring blood work and x-ray of your lumbar spine Plan for care at home: You may take 400-600 mg Ibuprofen every 6 hours as needed for pain/fever with food unless told by your physician not to take NSAIDs. You may take tylenol 650 mg every 6 hours as needed for pain/fever unless told by your physician to not take it or have liver problems. You may take motrin and tylenol separately or at the same time. Please consider taking your steroids with food. You received narcotic or benzodiazepene medication while in the emergency room today. This is an addictive medication that may cause drowziness as well as constipation. Do not drive, operate heavy machinery, or drink alcohol under the influence of this medication. If you still have discomfort you may take the narcotic medication. Please be advised that these medications are habit forming, can make you sleepy, and can cause breathing issues. Do not use if you require your full attention. Take only as prescribed. Please follow up with: PCP, consider referral to physical therapy and/or sports medicine It is felt you are safe for discharge, however if any concerning signs or symptoms develop, call 911 or return to the Emergency Department. Specific signs or symptoms requiring return including but not limited to: Bowel or bladder incontinence, retention, weakness We are always here for you, your family members and the community. Thank you for allowing us to care for you. Forms Stand Alone Forms: My [facility], Important Visit Information Prescriptions Prescriptions: New methocarbamol 500 mg tablet 1,500 mg PO TID 2 Days Qty: 18 0RF oxycodone 5 mg tablet 5 mg PO Q8H PRN (Reason: pain) Qty: 9 0RF lidocaine 5 % adhesive patch,medicated 1 patch TOP DAILY PRN (Reason: pain) Qty: 15 0RF Rx Instructions: leave on most painful area for 12 hrs methylprednisolone 4 mg tablets,dose pack See Rx Instructions .ROUTE .COMPLEX Qty: 21 0RF Rx Instructions: Please follow instructions per blister pack. No Action albuterol sulfate 2.5 mg /3 mL (0.083 %) solution for nebulization 2.5 mg inhalation BID Qty: 180 3RF (DME) Aeroneb Go Nebulizer Misc See Rx Instructions .MEDSUPPLY Qty: 1 0RF Rx Instructions: With tubing and supplies. J44.9. J45.9. folic acid 1 mg tablet 1 mg PO QAM Qty: 90 3RF Rx Instructions: TAKE 1 TABLET BY MOUTH EVERY MORNING albuterol sulfate [Ventolin HFA] 90 mcg/actuation HFA aerosol inhaler 1 - 2 puff INH Q6H PRN (Reason: shortness of breath or wheezing) Qty: 18 5RF dexlansoprazole 60 mg capsule,biphase delayed releas 60 mg PO QAM Qty: 90 3RF Rx Instructions: TAKE 1 CAPSULE EVERY MORNING cholecalciferol (vitamin D3) 50 mcg (2,000 unit) tablet 2,000 unit PO QAM Qty: 90 3RF zolpidem 5 mg tablet 2.5 - 5 mg PO HS PRN (Reason: insomnia) Qty: 30 0RF levothyroxine 88 mcg tablet 88 mcg PO .COMPLEX Qty: 80 1RF Rx Instructions: 88 mcg orally 6 days per week; nitrofurantoin monohyd/m-cryst [Macrobid] 100 mg capsule 100 mg PO Q12H 5 Days Qty: 10 0RF Rx Instructions: must administer with a meal/food aspirin [Adult Low Dose Aspirin] 81 mg tablet,delayed release (DR/EC) 81 mg PO QAM mupirocin 2 % ointment 1 applic topical HS PRN (Reason: Skin Irritation) Qty: 22 1RF Rx Instructions: Apply small amount to the external rim of the nostril before bed x 2 weeks then PRN sodium chloride 7 % solution for nebulization 1 inh inhalation BID Qty: 240 3RF budesonide-formoterol [Symbicort] 80-4.5 mcg/actuation HFA aerosol inhaler 2 puff inhalation BID Qty: 3 3RF Rx Instructions: Symbicort brand for insurance estradiol 0.01 % (0.1 mg/gram) cream 1 g vaginal DAILY PRN Rx Instructions: 1 gram intravaginally at bedtime nightly for 14 days and then 2x a week at bedtime for maintenance Vitron-C 65 mg iron- 125 mg tablet,delayed release (DR/EC) 1 tab PO DAILY tramadol 50 mg tablet 50 mg PO Q8H PRN (Reason: pain) Qty: 30 0RF Hold Instructions: PRN use hydroxyurea 500 mg capsule 500 mg PO DAILY Qty: 90 2RF sumatriptan succinate 25 mg tablet 25 mg PO UD PRN (Reason: migraines) Rx Instructions: TAKE 1 TAB EVERY 2 HRS NEEDED FOR MIGRAINE HEADACHE UNTIL RESPONSE MAX OF 8 DOSES IN A 24 HRS diclofenac sodium 1 % gel 1 g TOP BID PRN (Reason: Pain) Rx Instructions: APPLY SPARINGLY TO AFFECTED AREA TWICE A DAY- KNEE TOP BID; apply to single elbow, wrist or hand; for hand includes palm/fingers/back of hand Referrals Referrals: Irene Bradley MD [Primary Care Provider] - Discharge Problem: Acute back pain with sciatica Qualifiers: Laterality: right Qualified Code(s): M54.41 - Lumbago with sciatica, right side
[2025-08-18] MEDS: KETOROLAC TROMETHAMINE 15 MG/ML VIAL IV STA (12:56)
[2025-08-18] MEDS: ACETAMINOPHEN 500 MG TAB PO STA (12:57)
[2025-08-18] MEDS: MoRPHine SULFATE 4 MG/ML 1 ML CARP\\VIAL IV STA ×2 (12:59→18:19)
[2025-08-18] MEDS: LIDOCAINE 5% 1 PATCH TD STA (12:59)
[2025-08-18 13:20] LABS: Hematocrit (blood only) 41.8 % (37.0-47.0); Hemoglobin 14.1 g/dL (12.0-16.0); Immature Granulocytes # (auto) 0.03 K/uL (0.01-0.20); Immature Granulocytes % (auto) 0.4 %; Mean Corpuscular Hemoglobin 31.8 pg (25.0-34.0); Mean Corpuscular Volume 94.1 fL (80.0-100.0); Platelet Count 396 K/uL (130-400); RDW Standard Deviation 61.2 fL (36.4-46.3); Red Blood Count 4.44 M/uL (4.20-5.40); White Blood Count 8.34 K/ul (4.8-10.8)
[2025-08-18 13:34] LABS: Anion Gap 7.0 (3-11); Blood Urea Nitrogen 12.0 mg/dl (6-23); Calcium 9.4 mg/dl (8.6-10.3); Carbon Dioxide 28.0 mmol/L (21-32); Chloride 106.0 mmol/L (98-107); Creatinine Clr Calc Pharmacy 73.8 ml/min; Glucose 83.0 mg/dl (70-99(Fasting)); Potassium 4.0 mmol/L (3.5-5.1); Sodium 141.0 mmol/L (136-145)
--- NOTE | 2025-08-18 14:04 | XRay Report ---
XR lumbar spine 2-3V HISTORY: 64 years-old Female R sided sciatica chronic low back pain COMPARISON: 08/12/2025 TECHNIQUE: 3 views of the lumbar spine FINDINGS: Transitional lumbosacral anatomy. Mild multilevel vertebral disc space narrowing, spondylitic spurrin g facet arthrosis. No acute fracture, subluxation or endplate erosion. Unremarkable soft tissues. IMPRESSION: No acute fracture or subluxation. ACT 112: Negative or not required by law. The above report was generated using voice recognition software. It may contain grammatical, syntax o r spelling errors. Electronically signed by: Aubrey Howard M.D. 08/18/2025 2:02 PM
[2025-08-18] MEDS: SODIUM CHLORIDE 0.9% 500 ML IV ONE (15:28)
[2025-08-18] MEDS: METHOCARBAMOL 500 MG TABLET PO STA (15:34)
--- NOTE | 2025-08-18 18:03 | History & Physical Report ---
Date of Service August 18, 2025 Assessment & Plan (1) Acute back pain with sciatica: Plan: She appears to have a right lumbar radiculopathy. Degenerative disc disease seen on routine x-rays. No lytic bone lesions. Retrosteroid therapy and pain control measures with as needed morphine. Will obtain additional imaging when the patient is able (2) Thrombocytopenia: Plan: Currently on Hydrea. Current platelet count is within normal limits (3) Chronic obstructive pulmonary disease: Plan: Currently stable. Continue inhaler therapy as usual (4) Acquired autoimmune hypothyroidism: Plan: Stable. Continue thyroid replacement therapy (5) GERD (gastroesophageal reflux disease): Plan: Stable. Continue PPI therapy Plan Observation status. Parenteral steroid therapy. Pain control measures. Further imaging once the patient is able. Hopefully home in 1 to 2 days. History of Present Illness Chief Complaint: Severe low back and right leg pain Primary Care Provider: Irene Bradley MD 64-year-old white female with a 7 to 10-day onset of gradually worsening low back pain radiating down the right leg. She is now unable to ambulate and is tearful with the pain which appears to be lumbar radiculopathy in nature. She denies any injury. X-rays reveal degenerative disc disease. CT scanning and MRI scanning were not attempted due to the patient's discomfort. No lytic bone lesions seen on routine x-ray. She is placed in observation for further evaluation and treatment Allergies Allergy/AdvReac Type Severity Reaction Status Date / Time sertraline Allergy Intermediate shaking Verified 08/12/25 13:28 Home Medications Medication Instructions Recorded Confirmed Type aspirin 81 mg tablet,delayed 81 mg PO QAM 12/20/21 08/12/25 History release (Adult Low Dose Aspirin) diclofenac sodium 1 % topical gel 1 g topical BID PRN Pain 02/22/22 08/12/25 History sumatriptan succinate 25 mg tablet 25 mg PO UD PRN migraines 02/22/22 08/12/25 History sodium chloride 7 % for 1 inh inhalation BID #240 mL 11/24/22 08/12/25 Rx nebulization mupirocin 2 % topical ointment 1 applic topical HS PRN Skin 09/21/23 08/12/25 Rx Irritation #22 grams albuterol sulfate 2.5 mg/3 mL 2.5 mg (3 mL) inhalation BID #180 03/27/24 08/12/25 Rx (0.083 %) solution for nebulization mL nebulizers (Aeroneb Go Nebulizer) #1 ea 04/08/24 08/12/25 Rx folic acid 1 mg tablet 1 mg PO QAM #90 tabs 05/12/24 08/12/25 Rx iron,carbonyl 65 mg-vitamin C 125 1 tab PO DAILY 01/28/25 08/12/25 History mg tablet,delayed release (Vitron-C) Ventolin HFA 90 mcg/actuation 1 - 2 puff inhalation Q6H PRN 02/11/25 08/12/25 Rx aerosol inhaler (albuterol sulfate) shortness of breath or wheezing #18 grams cholecalciferol (vitamin D3) 50 2,000 unit PO QAM #90 tabs 02/14/25 08/12/25 Rx mcg (2,000 unit) tablet dexlansoprazole 60 mg 60 mg PO QAM #90 caps 02/14/25 08/12/25 Rx capsule,biphase delayed release zolpidem 5 mg tablet 2.5 - 5 mg (0.5 - 1 x 5 mg) PO HS 03/18/25 08/12/25 Rx PRN insomnia #30 tabs tramadol 50 mg tablet 50 mg PO Q8H PRN pain #30 tabs 05/02/25 08/12/25 Rx budesonide-formoterol HFA 80 2 puff inhalation BID #3 Inhalers 05/23/25 08/12/25 Rx mcg-4.5 mcg/actuation aerosol inhaler (Symbicort) estradiol 0.01% (0.1 mg/gram) 1 g vaginal DAILY PRN 07/03/25 08/12/25 History vaginal cream levothyroxine 88 mcg tablet 88 mcg PO .COMPLEX #80 tabs 07/21/25 08/12/25 Rx hydroxyurea 500 mg capsule 500 mg PO DAILY #90 caps 08/05/25 08/12/25 Rx nitrofurantoin 100 mg PO Q12H 5 days #10 caps 08/14/25 Rx monohydrate/macrocrystals 100 mg capsule (Macrobid) lidocaine 5 % topical patch 1 patch topical DAILY PRN pain #15 08/18/25 Rx ea methocarbamol 500 mg tablet 1,500 mg (3 x 500 mg) PO TID 2 08/18/25 Rx days #18 tabs methylprednisolone 4 mg tablets in See Rx Instructions .Route 08/18/25 Rx a dose pack .COMPLEX #21 ea oxycodone 5 mg tablet 5 mg PO Q8H PRN pain #9 tabs 08/18/25 Rx Past Med/Surg History Problem List (Updated 08/18/25 @ 18:01 by Carlos De Leon MD) GERD (gastroesophageal reflux disease) Thrombocytopenia Acute back pain with sciatica (Acute) Iron deficiency Multiple thyroid nodules Splenomegaly (Acute) Frequent UTI (Chronic) Cystocele with rectocele Right low back pain Ovarian cyst 2017, simple, left 2.1cm Prediabetes Difficulty swallowing Osteopenia GERD (gastroesophageal reflux disease) Generalized OA Smell, impaired Decreased sensation of smell since infection July 2019 Vitamin D deficiency disease (Acute) Decreased hearing of right ear (Acute) Abnormal EMG (Acute) Asthma Bronchiectasis Allergic rhinitis with postnasal drip COPD (chronic obstructive pulmonary disease) Low back pain Subclavian artery stenosis Rosacea Essential thrombocytopenia f/u Dr. Shant Hemphill @ [facility] Hypothyroidism (Acute) Medical History Neck tightness Depression Hyperlipidemia H/O thyroid nodule Blepharitis of upper eyelid Neck pain Acquired autoimmune hypothyroidism Abnormal thyroid ultrasound COVID-19 UTI (urinary tract infection) Asymptomatic postmenopausal state Intestinal metaplasia of gastric mucosa RUQ pain History of COVID-19 Chronic obstructive pulmonary disease Asthma Chronic cough Acute lateral meniscus tear of right knee History of recurrent infection Osteoporosis Osteoarthritis Anxiety Migraine Cough Metaplasia of esophagus Late onset dysthymia BRENDON (iron deficiency anemia) Esophagitis Constipation Lump of right breast Depression Surgical History History of bilateral cataract extraction History of nasal septoplasty History of esophagogastroduodenoscopy (EGD) History of repair of rotator cuff History of biopsy History of thyroid surgery H/O colonoscopy Family History Grandfather (Paternal) Bone cancer Sister Diabetes Osteoporosis Other No family history of adverse response to anesthesia Denies family history of Ovarian cancer Prostate cancer Myocardial infarction Breast cancer Colorectal cancer Stroke Social History (Reviewed 08/12/25 @ 13:30 by ARIANNE Gilliam Smoking Status: Never smoker Second Hand Exposure: No; Do You Dip or Chew Tobacco: No; Hx Alcohol Use: No Hx Substance Use: No Preferred Language: [place]ian Communication Ability: Impaired Visual Impairment: No Limitations Hearing Ability: Normal Clean Out Driller Required: Yes Beliefs That Will Affect Care: None marital status: Current Living Situation: Spouse current occupational status: unemployed Feels Safe at Home: Yes Childhood Exposure to Second-Hand Smoke: No Dental Care, Regularly: Yes Physical Activity Frequency: 3-4 Times per Week Seatbelt Use: always Sunscreen Use: Yes Assistive Devices: Glasses Review of Systems 2 Review of Systems: Constitutionalno fever or chills ENTno blurred vision, no double vision, no epistaxis, no sore throat Respiratoryno cough, no wheezing, no shortness of breath Cardiacno palpitations, no chest pain, no syncope Rashmi nausea, vomiting, diarrhea, melena, hematochezia GUno urinary retention, no urinary incontinence, no dysuria, no hematuria Musculoskeletallumbar area pain radiating down the right leg. No rash. Skinno bruising, no rashes, no pruritus Neuroright lower extremity weakness associated with the pain. No paresthesia Psychtearful. Restless. Physical Exam 2 Physical Exam: General-alert and oriented x3, no fever, no chills HEENT-head atraumatic and normocephalic, pupils equal and reactive to light, extraocular muscles intact Neck-no lymphadenopathy or thyromegaly, trachea midline Chest-clear to auscultation. No rales, wheezing or rhonchi Cardiac-regular rate and rhythm, normal S1 and S2 Abdomen-normal bowel sounds, no hepatosplenomegaly Extremities-no cyanosis, clubbing, or edema. Distal pulses both legs are intact. Neuro-cranial nerves II through XII intact, motor and sensory function within normal limits, strength symmetrical, no focal deficits Psych-normal affect, normal mood Results & Data Results & Data Vital Signs (Past 12 Hours) Vital Signs Temp Pulse Pulse Resp BP BP Pulse Ox 08/18/25 14:41 70 16 153/84 H 95 08/18/25 14:02 77 08/18/25 14:01 72 16 118/71 94 08/18/25 13:15 78 18 95 08/18/25 12:55 81 20 133/85 98 08/18/25 11:57 36.4 C L 98 H 20 138/79 99 O2 Del Method 08/18/25 14:41 Room Air 08/18/25 14:02 08/18/25 14:01 Room Air 08/18/25 13:15 Room Air 08/18/25 12:55 Room Air 08/18/25 11:57 Room Air Laboratory Results 08/18/25 12:54 08/18/25 12:54 Code Status & VTE Plan Code Status Full code PG Care Time/CCT Total # of Minutes Spent Total Time Spent with Patient: Total time spent is greater than 50% in coordination of care (as documented) at patient's floor/unit and/or counseling patient: Coding Level of Care Code 68472 INT INP/OBS CARE 3/75MIN Diagnoses Acute back pain with sciatica M54.41 Laterality: right Thrombocytopenia D69.6 Chronic obstructive pulmonary disease J44.9 Acquired autoimmune hypothyroidism E06.3 GERD (gastroesophageal reflux disease) K21.9 (1) Acute back pain with sciatica Laterality: right Qualified Code(s): M54.41 - Lumbago with sciatica, right side
[2025-08-18] MEDS ORDERED: ONDANSETRON INJ 2 MG/ML 2 ML VIAL IV PRN (19:26)
[2025-08-18] MEDS ORDERED: MoRPHine SULFATE 2 MG/ML CARP IV PRN (19:26)
[2025-08-18] MEDS ORDERED: ZOLPIDEM TARTRATE 5 MG TAB PO PRN (19:26)
[2025-08-18] MEDS ORDERED: REMOVE LIDODERM PATCH SCH (21:00)
[2025-08-19] MEDS: FLUTICASONE/VILANTEROL 100/25MCG 14 PUFFS/INHALER INH SCH (00:07)
[2025-08-19] MEDS: methylPREDNISolone 10 mg/mL (For Ped Dose < 7mg) IV SCH (02:38)
[2025-08-19] MEDS: LEVOTHYROXINE SODIUM 88 MCG TABLET PO SCH (05:47)
[2025-08-19] MEDS: HYDROXYUREA 500 MG CAP PO SCH (07:48)
[2025-08-19] MEDS: ASPIRIN 81 MG ECTAB PO SCH (07:49)
[2025-08-19] MEDS: CHOLECALCIFEROL 125 MCG (5,000 UNITS) TAB PO SCH (07:49)
--- NOTE | 2025-08-19 09:22 | Hospitalist Progress Note ---
Date of Service August 19, 2025 Assessment & Plan (1) Acute back pain with sciatica: Plan: She appears to have a right lumbar radiculopathy. Much improved with parenteral steroid therapy. Lumbar MRI scan ordered and pending for further evaluation. OT and PT assessments have been requested. Parenteral steroid therapy dosage has been tapered down. No lytic bone lesions seen on routine x-ray. She has not required any morphine since last night (2) Thrombocytopenia: Plan: Currently on Hydrea. Current platelet count is within normal limits (3) Chronic obstructive pulmonary disease: Plan: Currently stable. Continue inhaler therapy as usual (4) Acquired autoimmune hypothyroidism: Plan: Stable. Continue thyroid replacement therapy (5) GERD (gastroesophageal reflux disease): Plan: Stable. Continue PPI therapy Plan Lumbar MRI scan ordered and pending. Parenteral steroid therapy tapered down today, August 19. Hopefully she can go home tomorrow, August 20 Admission and Anticipated Discharge Date Admission Date: August 18, 2025 Subjective The patient is feeling much better. Decreased right leg discomfort and sensation has improved but has not returned to baseline. Parenteral steroid therapy has been decreased. OT and PT assessments have been requested. Will obtain lumbar MRI scan for further evaluation. Hopefully she can go home on a oral tapering dose of prednisone tomorrow, August 20 Review of Systems 2 Review of Systems: Constitutionalno fever or chills ENTno blurred vision, no double vision, no epistaxis, no sore throat Respiratoryno cough, no wheezing, no shortness of breath Cardiacno palpitations, no chest pain, no syncope Rashmi nausea, vomiting, diarrhea, melena, hematochezia GUno urinary retention, no urinary incontinence, no dysuria, no hematuria Musculoskeletallumbar area pain radiating down the right leg has improved considerably. No rash. Skinno bruising, no rashes, no pruritus Neuroright lower extremity weakness associated with the pain. No paresthesia Psychtearful. Restless. Physical Exam 2 Physical Exam: General-alert and oriented x3, no fever, no chills HEENT-head atraumatic and normocephalic, pupils equal and reactive to light, extraocular muscles intact Neck-no lymphadenopathy or thyromegaly, trachea midline Chest-clear to auscultation. No rales, wheezing or rhonchi Cardiac-regular rate and rhythm, normal S1 and S2 Abdomen-normal bowel sounds, no hepatosplenomegaly Extremities-no cyanosis, clubbing, or edema. Distal pulses both legs are intact. Neuro-cranial nerves II through XII intact, motor and sensory function within normal limits, strength symmetrical, no focal deficits Psych-normal affect, normal mood Results & Data Results & Data Vital Signs (Past 12 Hours) Vital Signs Temp Pulse Resp BP Pulse Ox O2 Del Method 08/19/25 07:17 36.5 C 86 18 107/66 95 Room Air 08/19/25 00:16 Room Air 08/19/25 00:16 36.4 C L 90 16 125/75 96 Room Air Laboratory Results 08/18/25 12:54 08/18/25 12:54 PG Care Time/CCT Total # of Minutes Spent Total Time Spent with Patient: Total time spent is greater than 50% in coordination of care (as documented) at patient's floor/unit and/or counseling patient: Coding Level of Care Code 93285 SUB INP/OBS CARE 3/50MIN Diagnoses Acute back pain with sciatica M54.41 Laterality: right Thrombocytopenia D69.6 Chronic obstructive pulmonary disease J44.9 Acquired autoimmune hypothyroidism E06.3 GERD (gastroesophageal reflux disease) K21.9 (1) Acute back pain with sciatica Laterality: right Qualified Code(s): M54.41 - Lumbago with sciatica, right side
--- NOTE | 2025-08-19 11:39 | Magnetic Resonance Report ---
MRI OF THE LUMBAR SPINE WITHOUT CONTRAST CLINICAL HISTORY: Lumbar radiculopathy. Low back pain with right-sided radiculopathy. COMPARISON STUDY: Lumbar spine MRI October 24, 2016. Lumbar spine radiographs August 18, 2025. TECHNIQUE: Utilizing a 3 Yaneth magnet and dedicated coil, multiplanar, multiecho imaging of the lumb ar spine was performed without IV contrast. FINDINGS: For purposes of numbering on this exam at L5-S1 disc space is assigned to axial image 27 of 30. Verte bral body heights are maintained. No marrow edema or marrow replacement is present. There is no intra canalicular mass or fluid collection. Conus terminates at the upper L2 level. Paravertebral soft tiss ues are unremarkable. Splenomegaly is again noted. This was depicted on CT of December 12, 2024. L1-2: The central canal and neural foramina patent. L2-3: The central canal and neural foramina patent. L3-4: The central canal and neural foramen are patent. L4-5: There is a moderate size right paracentral disc extrusion with inferior subligamentous migratio n. This results in severe narrowing of the right lateral recess. This disc herniation is new since MR I October 24, 2016. There is no central canal stenosis. There is mild bilateral neural foraminal abdiel nosis. L5-S1: The central canal is patent. There is mild facet arthrosis. There is a small right foraminal a nnular tear with tiny disc protrusion. There is no central canal or neural foraminal stenosis. IMPRESSION: 1. Moderate size right paracentral disc extrusion at L4-L5 with inferior subligamentous migration. Th is results in severe narrowing of the right lateral recess with mass effect upon the descending right L5 nerve root. 2. Otherwise, minimal degenerative changes within the lumbar spine. ACT 112: Negative or not required by law. Electronically signed by: Cam Newman M.D. 08/19/2025 11:36 AM
[2025-08-19] MEDS: ACETAMINOPHEN 325 MG TAB PO PRN (14:00)
[2025-08-19] MEDS ORDERED: methylPREDNISolone 10 mg/mL (For Ped Dose < 7mg) IV SCH (14:30)
[2025-08-19 22:28] VITALS: O2SAT 96
[2025-08-20 07:29] VITALS: BP 115/68; PULSE 90; RESP 17; TEMP 97.9
--- NOTE | 2025-08-20 08:30 | Discharge Summary ---
Discharge Summary Date of Service August 20, 2025 Principal Dx & Hospital Course #1 = Principal Diagnosis (1) Acute back pain with sciatica: Lumbar MRI scan reveals right L4-L5 herniated nucleus pulposus which is obviously the culprit lesion producing the right lumbar radiculopathy. She is much improved from admission but not yet pain-free. She is able to ambulate well though. She can go home today. Will switch parenteral steroid therapy to prednisone in a tapering dose fashion. Take oxycodone 5 mg as needed for any recurrent pain. See primary care provider soon as possible for eventual referral to orthopedic spine surgeon for definitive treatment. No lytic bone lesions seen on routine x-ray. (2) Thrombocytopenia: Currently on Hydrea. Current platelet count is within normal limits (3) Chronic obstructive pulmonary disease: Currently stable. Continue inhaler therapy as usual (4) Acquired autoimmune hypothyroidism: Stable. Continue thyroid replacement therapy (5) GERD (gastroesophageal reflux disease): Stable. Continue PPI therapy Plan Home today, August 20. Follow-up with PCP as soon as possible for referral to orthopedic spine surgeon to discuss possible surgical intervention for right L4- L5 acute herniated nucleus pulposus. Admission HPI Per Admitting Provider 64-year-old white female with a 7 to 10-day onset of gradually worsening low back pain radiating down the right leg. She is now unable to ambulate and is tearful with the pain which appears to be lumbar radiculopathy in nature. She denies any injury. X-rays reveal degenerative disc disease. CT scanning and MRI scanning were not attempted due to the patient's discomfort. No lytic bone lesions seen on routine x-ray. She is placed in observation for further evaluation and treatment Discharge Exam General-alert and oriented x3, no fever, no chills HEENT-head atraumatic and normocephalic, pupils equal and reactive to light, extraocular muscles intact Neck-no lymphadenopathy or thyromegaly, trachea midline Chest-clear to auscultation. No rales, wheezing or rhonchi Cardiac-regular rate and rhythm, normal S1 and S2 Abdomen-normal bowel sounds, no hepatosplenomegaly Extremities-no cyanosis, clubbing, or edema. Distal pulses both legs are intact. Neuro-cranial nerves II through XII intact, motor and sensory function within normal limits, strength symmetrical, no focal deficits Psych-normal affect, normal mood Discharge Plan Discharge Items Patient Disposition: Home - Self-Care Reason For Visit: SCIATICA Discharge Diagnosis: Right L4-L5 herniated nucleus pulposus, right lumbar radiculopathy Condition on Discharge: Good Activity: Resume your previous activity Non-emergency contact: Primary Care Provider Call non-emergency contact if: you have any medication questions and your symptoms worsen Follow-up/Referrals: Irene Bradley MD [Primary Care Provider] - Diet: Regular Addtl Attending Provider Instructions: Take prednisone in a tapering dose fashion as directed. Use oxycodone as needed for any recurrent pain. Prescriptions have been sent to your pharmacy. See your primary care provider soon as possible for follow-up and referral to orthopedic spine surgeon. Pending Studies at Discharge: No Stand-Alone Forms: [facility], Smoking Cessation Medications and DC Order Prescriptions: New methocarbamol 500 mg tablet 1,500 mg PO TID 2 Days Qty: 18 0RF lidocaine 5 % adhesive patch,medicated 1 patch TOP DAILY PRN (Reason: pain) Qty: 15 0RF Rx Instructions: leave on most painful area for 12 hrs methylprednisolone 4 mg tablets,dose pack See Rx Instructions .ROUTE .COMPLEX Qty: 21 0RF Rx Instructions: Please follow instructions per blister pack. prednisone 10 mg tablet See Rx Instructions .ROUTE .COMPLEX Qty: 12 0RF Rx Instructions: 10 mg orally 3 times a day for 2 days, then 10 mg twice a day for 2 days, then 10 mg once a day for 2 days, then stop oxycodone 5 mg tablet 5 mg PO Q6H PRN (Reason: pain) Qty: 20 0RF Continued albuterol sulfate 2.5 mg /3 mL (0.083 %) solution for nebulization 2.5 mg inhalation BID Qty: 180 3RF (DME) Aeroneb Go Nebulizer Misc See Rx Instructions .MEDSUPPLY Qty: 1 0RF Rx Instructions: With tubing and supplies. J44.9. J45.9. folic acid 1 mg tablet 1 mg PO QAM Qty: 90 3RF Rx Instructions: TAKE 1 TABLET BY MOUTH EVERY MORNING albuterol sulfate [Ventolin HFA] 90 mcg/actuation HFA aerosol inhaler 1 - 2 puff INH Q6H PRN (Reason: shortness of breath or wheezing) Qty: 18 5RF dexlansoprazole 60 mg capsule,biphase delayed releas 60 mg PO QAM Qty: 90 3RF Rx Instructions: TAKE 1 CAPSULE EVERY MORNING cholecalciferol (vitamin D3) 50 mcg (2,000 unit) tablet 2,000 unit PO QAM Qty: 90 3RF zolpidem 5 mg tablet 2.5 - 5 mg PO HS PRN (Reason: insomnia) Qty: 30 0RF levothyroxine 88 mcg tablet 88 mcg PO .COMPLEX Qty: 80 1RF Rx Instructions: 88 mcg orally 6 days per week; nitrofurantoin monohyd/m-cryst [Macrobid] 100 mg capsule 100 mg PO Q12H 5 Days Qty: 10 0RF Rx Instructions: must administer with a meal/food aspirin [Adult Low Dose Aspirin] 81 mg tablet,delayed release (DR/EC) 81 mg PO QAM mupirocin 2 % ointment 1 applic topical HS PRN (Reason: Skin Irritation) Qty: 22 1RF Rx Instructions: Apply small amount to the external rim of the nostril before bed x 2 weeks then PRN sodium chloride 7 % solution for nebulization 1 inh inhalation BID Qty: 240 3RF budesonide-formoterol [Symbicort] 80-4.5 mcg/actuation HFA aerosol inhaler 2 puff inhalation BID Qty: 3 3RF Rx Instructions: Symbicort brand for insurance estradiol 0.01 % (0.1 mg/gram) cream 1 g vaginal DAILY PRN Rx Instructions: 1 gram intravaginally at bedtime nightly for 14 days and then 2x a week at bedtime for maintenance Vitron-C 65 mg iron- 125 mg tablet,delayed release (DR/EC) 1 tab PO DAILY tramadol 50 mg tablet 50 mg PO Q8H PRN (Reason: pain) Qty: 30 0RF Hold Instructions: PRN use hydroxyurea 500 mg capsule 500 mg PO DAILY Qty: 90 2RF sumatriptan succinate 25 mg tablet 25 mg PO UD PRN (Reason: migraines) Rx Instructions: TAKE 1 TAB EVERY 2 HRS NEEDED FOR MIGRAINE HEADACHE UNTIL RESPONSE MAX OF 8 DOSES IN A 24 HRS diclofenac sodium 1 % gel 1 g TOP BID PRN (Reason: Pain) Rx Instructions: APPLY SPARINGLY TO AFFECTED AREA TWICE A DAY- KNEE TOP BID; apply to single elbow, wrist or hand; for hand includes palm/fingers/back of hand Discharge Orders: Discharge Order (Routine); Ordered 08/20/25 Ordered By: Carlos De Leon Admission Data Admit Date/Time: 08/18/25 17:50 Attending Provider: Carlos De Leon Admit Provider: Carlos De Leon Primary Care Provider: Irene Bradley V. Other Providers: Carlos De Leon Hospital Stay Data Consultations 08/18/25 17:15 ED Decision to Admit Stat Diagnostic Imagining Performed 08/19/25 09:16 MRI Lumbar Spine [MR lumbar spine wo con] Urgent Pending Results Patient Have Any Pending Studies at Discharge: No Discharge Instructions Given to Patient (Per Discharging Provider) Take prednisone in a tapering dose fashion as directed. Use oxycodone as needed for any recurrent pain. Prescriptions have been sent to your pharmacy. See your primary care provider soon as possible for follow-up and referral to orthopedic spine surgeon. Total Time Total Time Spent Total Time Spent (In Minutes): 45 minutes. Total time included patient exam, discharge planning, medication reconciliatioN Coding Level of Care Code 72756 INP/OBS DISCH >30 MIN Diagnoses Acute back pain with sciatica M54.41 Laterality: right Thrombocytopenia D69.6 Chronic obstructive pulmonary disease J44.9 Acquired autoimmune hypothyroidism E06.3 GERD (gastroesophageal reflux disease) K21.9
== END 2025-08-20 12:27 | disposition home or self-care (01) ==
LOC: SUATTDRO → ED 11:54 → EDINP 11:54 → 3W 19:26